=== PATIENT | male | born 1970 | race Caucasian/White ===

== ENCOUNTER 2017-04-23 18:30 | Emergency (ER) | payer OTHER ==
[~2017-04-23] VITALS: Ht 175.3 cm; Wt 75.8 kg
[~2017-04-23 18:30] MED LIST: CLEOCIN HCL300 MG PO; HYDROCODONE-AP1 EAC6 PO; IBUPROFEN 800800 M1 PO
[2017-04-23 19:45] LABS: INFLUENZA A ANTIGEN None Detected (None Detect); INFLUENZA B ANTIGEN None Detected (None Detect)
[2017-04-23] MEDS ORDERED: PROAIR HFA8.5 GM INH (20:00)
[2017-04-23] MEDS ORDERED: TESSALON PERLE100 MG PO (20:00)
[2017-04-23 20:13] VITALS: BP 124/86
== END 2017-04-23 20:13 | disposition home or self-care (01) ==
LOC: M.ERS 18:30
PROVIDERS: Physician Assistant
DX: B34.9 Viral infection, unspecified (principal)